=== PATIENT | female | born 1950 | race Caucasian/White ===

== ENCOUNTER 2017-10-26 17:45 | Inpatient (IN) | payer MEDICARE ==
[~2017-10-26] VITALS: Ht 160 cm; Wt 72.8 kg
[2017-10-26 17:53] VITALS: BP 125/58; PULSE 88; RESP 16; TEMP 98.3; O2SAT 100
--- NOTE | 2017-10-26 18:46 | PD ---
HPI Chief Complaint: Injury Time Seen by Provider: 18:17 Travel History International Travel<30 days: No Contact w/Intl Traveler<30days: No Traveled to known affect area: No History of Present Illness HPI 67-year-old female presents the emergency department status post trip and fall at home. She states she was going out into the driveway to help her wash the car, when she tripped over a bucket in the driveway and fell evening a outstretched hand injury to the right wrist. Patient has a small abrasion to the lateral aspect of the right wrist. She has pain and swelling and decreased movement secondary to pain in the right wrist and hand. She states the pain radiates up to her elbow but she is able to extend and flex the elbow normally. Patient denies hitting her head, or loss of consciousness. She denies neck pain or other injury. Pain in the wrist is 9 out of 10. Patient is allergic to codeine. PFSH Past Medical History ?: Not Social History Alcohol Use: Yes Tobacco Use: No Substance Use: No Allergies-Medications (Allergen,Severity, Reaction): Coded Allergies: codeine (Verified Allergy, Severe, Headache, 10/26/17) Reported Meds & Prescriptions Reported Meds & Active Scripts Active Cefdinir Liq (Cefdinir) 250 Mg/5 Ml Susp 250 Mg PO BID 10 Days Reported Hydrochlorothiazide 25 Mg Tab 25 Mg PO DAILY Review of Systems Except as stated in HPI: all other systems reviewed are Neg General / Constitutional: No: Fever Eyes: No: Visual changes HENT: No: Headaches Cardiovascular: No: Chest Pain or Discomfort Respiratory: No: Shortness of Breath Gastrointestinal: No: Abdominal Pain Genitourinary: No: Dysuria Musculoskeletal: Positive: Arthralgias, Limited ROM, Pain (see history of present illness) Skin: No Rash Neurologic: No: Weakness Psychiatric: No: Depression Endocrine: No: Polydipsia Hematologic/Lymphatic: No: Easy Bruising Physical Exam Narrative GENERAL: Patient appears in mild distress. SKIN: Warm and dry. Normal color. Normal turgor. Patient has abrasions to the right lateral wrist. HEAD: Atraumatic. Normocephalic. EYES: Pupils equal and round. No scleral icterus. No injection or drainage. ENT: No nasal bleeding or discharge. Mucous membranes pink and moist. No dental injury. Pharynx is clear. Airway is patent. NECK: Trachea midline. No bony tenderness or step-off. Range of motion is full and supple. CARDIOVASCULAR: Regular rate and rhythm. RESPIRATORY: No accessory muscle use. Clear to auscultation. Breath sounds equal bilaterally. MUSCULOSKELETAL: Extremities without clubbing, cyanosis, or edema. No obvious deformities. Patient has decreased range of motion in the right wrist and hand secondary to pain in the rest. Neurovascular exam in the right distal hand is normal. The right Elbow appears normal without signs of trauma. Right shoulder appears unremarkable. NEUROLOGICAL: Awake and alert. No obvious cranial nerve deficits. Motor grossly within normal limits. Five out of 5 muscle strength in the arms and legs. Normal speech. PSYCHIATRIC: Appropriate mood and affect; insight and judgment normal. Data Data Last Documented VS Vital Signs Date Time Temp Pulse Resp B/P (MAP) Pulse Ox O2 Delivery O2 Flow Rate FiO2 10/26/17 17:53 98.3 88 16 125/58 (80) 100 Orders Orders Wrist, Complete (Aeb1oon) (10/26/17 18:19) Wound Care (10/26/17 18:19) Complete Blood Count With Diff (10/26/17 18:58) Comprehensive Metabolic Panel (10/26/17 18:58) Prothrombin Time / Inr (Pt) (10/26/17 18:58) Act Partial Throm Time (Ptt) (10/26/17 18:58) Iv Access Insert/Monitor (10/26/17 18:58) Ecg Monitoring (10/26/17 18:58) Oximetry (10/26/17 18:58) NPO (10/26/17 18:58) Morphine Inj (Morphine Inj) (10/26/17 19:00) Ondansetron Inj (Zofran Inj) (10/26/17 19:00) Sodium Chlor 0.9% 1000 Ml Inj (Ns 1000 M (10/26/17 18:58) Sodium Chloride 0.9% Flush (Ns Flush) (10/26/17 19:00) Electrocardiogram (10/26/17 18:58) Chest, Single Ap (10/26/17 18:58) Splint Or Brace Apply/Monitor (10/26/17 19:29) Splint Or Brace Apply/Monitor (10/26/17 19:29) Admit Order (Ed Use Only) (10/26/17 19:45) Consult Orthopedic (10/26/17 ) Labs Laboratory Tests Test 10/26/17 19:18 White Blood Count 12.8 TH/MM3 Red Blood Count 4.87 MIL/MM3 Hemoglobin 13.7 GM/DL Hematocrit 43.4 % Mean Corpuscular Volume 89.0 FL Mean Corpuscular Hemoglobin 28.2 PG Mean Corpuscular Hemoglobin Concent 31.7 % Red Cell Distribution Width 12.5 % Platelet Count 261 TH/MM3 Mean Platelet Volume 8.6 FL Neutrophils (%) (Auto) 79.2 % Lymphocytes (%) (Auto) 16.5 % Monocytes (%) (Auto) 3.3 % Eosinophils (%) (Auto) 0.5 % Basophils (%) (Auto) 0.5 % Neutrophils # (Auto) 10.1 TH/MM3 Lymphocytes # (Auto) 2.1 TH/MM3 Monocytes # (Auto) 0.4 TH/MM3 Eosinophils # (Auto) 0.1 TH/MM3 Basophils # (Auto) 0.1 TH/MM3 CBC Comment AUTO DIFF Prothrombin Time 11.1 SEC Prothromb Time International Ratio 1.1 RATIO Activated Partial Thromboplast Time 26.8 SEC Blood Urea Nitrogen 16 MG/DL Creatinine 0.73 MG/DL Random Glucose 109 MG/DL Total Protein 7.7 GM/DL Albumin 3.8 GM/DL Calcium Level 8.9 MG/DL Alkaline Phosphatase 75 U/L Aspartate Amino Transf (AST/SGOT) 20 U/L Alanine Aminotransferase (ALT/SGPT) 29 U/L Total Bilirubin 0.3 MG/DL Sodium Level 134 MEQ/L Potassium Level 3.9 MEQ/L Chloride Level 99 MEQ/L Carbon Dioxide Level 25.9 MEQ/L Anion Gap 9 MEQ/L Estimat Glomerular Filtration Rate 79 ML/MIN [facility] Medical Decision Making Medical Screen Exam Complete: Yes Emergency Medical Condition: Yes Differential Diagnosis Trip and fall. Right wrist sprain. Right wrist abrasion. Fracture. Narrative Course Ice is applied to the injured area. X-ray of the right wrist shows a comminuted displaced intra-articular distal radial fracture. IV access is obtained and labs are obtained including CBC, CMP, PT PTT and INR. Chest x-ray is obtained as well as EKG for preop purposes. Patient is given 4 mg morphine IV as well as 4 mg Zofran IV. Patient is given 1000 mg normal saline bolus per Call was placed to Dr. Pitts, the orthopedic on-call and the patient is discussed with his physician casting assistant. Dr. Pitts requests the patient be admitted to medicine and transferred to [facility] for surgical open reduction and fixation in the morning. Call was placed to the residence and the patient is discussed with Dr. Calvo. Patient is accepted for admission and will be transferred to [facility] for admission. Diagnosis Primary Impression: Closed fracture of right distal radius Qualified Codes: S52.571A - Other intraarticular fracture of lower end of right radius, initial encounter for closed fracture Admitting Information Admitting Physician Requests: Observation Scripts Cefdinir Liq (Cefdinir Liq) 250 Mg/5 Ml Susp 250 MG PO BID for Infection for 10 Days, #100 ML 0 Refills Prov: Cynthia Donovan MD 10/26/17 Condition: Stable Tung Schroeder Oct 26, 2017 18:46
[2017-10-26] MEDS ORDERED: HYDR25TA5 PO (18:49)
[2017-10-26] MEDS ORDERED: SODIUM CHLOR 0.9% 1000 ML INJ 1,000 ML IV SCH (18:58)
[2017-10-26] MEDS ORDERED: ONDANSETRON HCL 4 MG/2 ML VIAL IVP ONE (19:00)
[2017-10-26] MEDS ORDERED: SODIUM CHLORIDE 0.9% FLUSH 10 ML FLUSH IV FLUSH PRN ×2 (19:00→19:45)
[2017-10-26] MEDS ORDERED: MORPHINE SULFATE 4 MG/ML INJ IV PUSH ONE (19:00)
[2017-10-26] MEDS ORDERED: CEFD250S PO (19:06)
--- NOTE | 2017-10-26 19:22 | RADRPT ---
EXAM DATE/TIME: 10/26/2017 18:46 [facility] COMPARISON: No previous studies available for comparison. INDICATIONS : Right wrist pain, swelling, and bleeding since falling this afternoon. MEDICAL HISTORY : None. SURGICAL HISTORY : None. ENCOUNTER: Initial ACUITY: 1 day PAIN SCORE: 8/10 LOCATION: Right lateral wrist. FINDINGS: There is a comminuted fracture of the distal radius with both a horizontal and longitudinal component with the longitudinal component extending into the radiocarpal row. The ulnar styloid fragment is m oderately displaced laterally. There is widening of the scapholunate distance. The distal ulna appe ars intact, but there is a 3 mm well-corticated ossific density in the space between the pisiform and ulnar styloid suggesting old avulsion fragment. The osseous structures of the hand appear grossly i ntact. CONCLUSION: 1. Comminuted and displaced distal radial fracture extending into the radiocarpal row. 2. Probable scapholunate ligament disruption. Pradip Espinal MD on October 26, 2017 at 19:18 Board Certified Radiologist. This report was verified electronically.
[2017-10-26 19:24] LABS: AUTOMATED NEUTROPHIL # 10.1 TH/MM3 (1.8-7.7); BASOPHIL # 0.1 TH/MM3 (0-0.2); BASOPHIL % 0.5 % (0.0-2.0); EOSINOPHIL # 0.1 TH/MM3 (0-0.4); EOSINOPHIL % 0.5 % (0.0-4.0); HEMATOCRIT 43.4 % (35.0-46.0); HEMOGLOBIN 13.7 GM/DL (11.6-15.3); LYMPH % 16.5 % (9.0-44.0); LYMPHOCYTE # 2.1 TH/MM3 (1.0-4.8); MEAN CORPUSCULAR HEMOGLOBIN 28.2 PG (27.0-34.0); MEAN CORPUSCULAR HGB CONC 31.7 % (32.0-36.0); MEAN PLATELET VOLUME 8.6 FL (7.0-11.0); MONO % 3.3 % (0.0-8.0); MONOCYTE # 0.4 TH/MM3 (0-0.9); NEUT % 79.2 % (16.0-70.0); PLATELET COUNT 261 TH/MM3 (150-450); RED BLOOD COUNT 4.87 MIL/MM3 (4.00-5.30); RED CELL DISTRIBUTION WIDTH 12.5 % (11.6-17.2); WHITE BLOOD COUNT 12.8 TH/MM3 (4.0-11.0)
[2017-10-26 19:35] LABS: CHLORIDE 99 MEQ/L (98-107); SODIUM (NA) 134 MEQ/L (136-145)
[2017-10-26 19:39] LABS: ALBUMIN 3.8 GM/DL (3.4-5.0); BICARBONATE 25.9 MEQ/L (21.0-32.0); BLOOD UREA NITROGEN 16 MG/DL (7-18); CALCIUM 8.9 MG/DL (8.5-10.1); GLUCOSE,RANDOM 109 MG/DL (74-106); INTERNATIONAL NORMALIZED RATIO 1.1 RATIO; PROTHROMBIN TIME - PATIENT 11.1 SEC (9.8-11.6)
[2017-10-26 19:42] LABS: ALT (GPT) 29 U/L (10-53); AST (GOT) 20 U/L (15-37); CREATININE 0.73 MG/DL (0.50-1.00); GLOMERULAR FILTRATION RATE 79 ML/MIN (>89)
[2017-10-26 19:44] LABS: TOTAL BILIRUBIN ADULT 0.3 MG/DL (0.2-1.0); TOTAL PROTEIN 7.7 GM/DL (6.4-8.2)
[2017-10-26 19:45] LABS: ALKALINE PHOSPHATASE 75 U/L (45-117)
[2017-10-26] MEDS ORDERED: SENNOSIDES 8.6 MG TAB PO PRN (19:45)
[2017-10-26] MEDS ORDERED: ACETAMINOPHEN 325 MG TAB PO PRN (19:45)
[2017-10-26] MEDS ORDERED: ONDANSETRON HCL 4 MG/2 ML VIAL IVP PRN (19:45)
[2017-10-26] MEDS ORDERED: MAGNESIUM HYDROXIDE SUSP 30 ML CUP PO PRN (19:45)
[2017-10-26] MEDS ORDERED: NALOXONE HCL 0.4 MG/ML AMP IV PUSH PRN (19:45)
--- NOTE | 2017-10-26 20:34 | RADRPT ---
EXAM DATE/TIME: 10/26/2017 20:18 [facility] COMPARISON: No previous studies available for comparison. INDICATIONS : Evaluate for pneumonia, pneumothorax, or communicable disease. Pre op for right wrist surgery. MEDICAL HISTORY : None. SURGICAL HISTORY : None. ENCOUNTER: Initial ACUITY: 1 day PAIN SCORE: 0/10 LOCATION: Bilateral chest FINDINGS: A single view of the chest demonstrates the lungs to be symmetrically aerated without evidence of mas s, infiltrate or effusion. No evidence of pneumothorax. The cardiomediastinal contours are unremark able. Osseous structures are intact. CONCLUSION: The lungs are clear. Pradip Espinal MD on October 26, 2017 at 20:32 Board Certified Radiologist. This report was verified electronically.
[2017-10-26 20:40] VITALS: BP 153/67; PULSE 83; RESP 18; O2SAT 95
--- NOTE | 2017-10-26 20:43 | EKG ---
Date Performed: 10/26/2017 Time Performed: 19:10:14 PTAGE: 67 years EKG: Sinus rhythm POSSIBLE LEFT ATRIAL ENLARGEMENT MARKED LEFT AXIS DEVIATION LEFT VENTRICULAR HYPERTROPHY AND ST-T CH EMMANUELLE ABNORMAL ECG NO PREVIOUS TRACING DOCTOR: Deniz Zamora Interpretating Date/Time 10/26/2017 20:42:40
[2017-10-26] MEDS: SODIUM CHLORIDE 0.9% FLUSH 10 ML FLUSH IV FLUSH SCH (21:00)
[2017-10-26 23:25] VITALS: BP 171/73; PULSE 87; RESP 20; TEMP 99.4; O2SAT 95
--- NOTE | 2017-10-26 23:47 | HHI.HP ---
[facility] Thais Sloan MD Admission Diagnosis right distal radial fracture Diagnoses: (1) Closed fracture of right distal radius Chief Complaint: right hand swelling, right wrist pain following a fall Travel History International Travel<30 Days: No Contact w/Intl Traveler <30 Da: No Traveled to Known Affected Are: No History of Present Illness Ms. Jernigan is a pleasant 67 y/o female with a history of hypertension who presented to the [facility] ED on 10/26/17 following a fall at home resulting in right distal radius fracture. She was transferred to [facility] for surgical repair by Dr. Ochoa. The hospitalists are admitting for pain management and blood pressure optimization prior to surgical repair of right wrist. The patient is seen in the orthopedic unit. She is sitting up in a chair with her right arm splinted and in a sling. She reports pain of 12 out of 10 prior to being medicated with morphine IV. She reports her pain currently is 3 out of 10 when not moving and 6-7 out of 10 when she moves her fingers. Pain is relieved with immobilization and IV analgesia and exacerbated by movement. The patient states that she was helping her wash her car in the driveway and tripped over a bucket and fell. She tried to brace her fall with her right wrist. She states swelling occurred immediately following the fall in the right hand along with excruciating pain in her right wrist. She did not lose consciousness nor did she hit her head. The patient has an adverse reaction to codeine - a severe headache. She denies any recent fever, chills, chest pain, shortness of breath, coughs, cold, nausea , vomiting, or diarrhea. Last bowel movement was 10/26/2017 in the morning. She denies any prior history of anesthesia adverse reactions. Review of Systems Except as stated in HPI: all other systems reviewed are Neg Past Family Social History Past Medical History Hypertension . Past Surgical History Left breast cystectomy 2 . Reported Medications Reported Hydrochlorothiazide 25 Mg Tab 25 Mg PO DAILY . Allergies: Coded Allergies: codeine (Verified Allergy, Severe, Headache, 10/26/17) Active Ordered Medications . Current Medications Morphine Sulfate (Morphine Inj) 4 mg ONCE ONCE IV PUSH Last administered on 19:28; Start 10/26/17 at 19:00; Stop 10/26/17 at 19:01; Status DC Ondansetron HCl (Zofran Inj) 4 mg ONCE ONCE IVP Last administered on 19:29; Start 10/26/17 at 19:00; Stop 10/26/17 at 19:01; Status DC Sodium Chloride 1,000 ml @ 1,000 mls/hr Q1H IV Last administered on 19:28; Start 10/26/17 at 18:58; Stop 10/26/17 at 19:57; Status DC Sodium Chloride (NS Flush) 2 ml UNSCH PRN IV FLUSH FLUSH AFTER USING IV ACCESS ; Start 10/26/17 at 19:00; Stop 10/26/17 at 19:56; Status DC Sodium Chloride (NS Flush) 2 ml UNSCH PRN IV FLUSH FLUSH AFTER USING IV ACCESS ; Start 10/26/17 at 19:45 Sodium Chloride (NS Flush) 2 ml BID IV FLUSH ; Start 10/26/17 at 21:00 Acetaminophen (Tylenol) 650 mg Q4H PRN PO TEMP > 100.4; Start 10/26/17 at 19: 45 Ondansetron HCl (Zofran Inj) 4 mg Q6H PRN IVP NAUSEA OR VOMITING; Start at 19:45 Naloxone HCl (Narcan Inj) 0.4 mg UNSCH PRN IV PUSH SEE LABEL COMMENTS; Start 10/26/17 at 19:45 Magnesium Hydroxide (Milk Of Magnesia Liq) 30 ml Q12H PRN PO Mild constipation ; Start 10/26/17 at 19:45 Sennosides (Senokot) 17.2 mg Q12H PRN PO Moderate constipation; Start at 19:45 Morphine Sulfate (Morphine Inj) 2 mg Q3H PRN IV PUSH pain 5 - 10 Last administered on 10/26/17 23:50; Start 10/26/17 at 20:00 Hydrochlorothiazide (Hydrodiuril) 25 mg DAILY PO ; Start 10/27/17 at 09:00 Lactated Ringer's 1,000 ml @ 30 mls/hr Q24H PRN IV SEE LABEL COMMENTS; Start 10/27/17 at 23:45; Stop 10/30/17 at 23:44 Povidone Iodine (Betadine 5% Antisepsis Kit) 1 applic STOCKKEEPER PRN EACH NARE SEE LABEL COMMENTS; Start 10/27/17 at 23:45; Stop 10/30/17 at 23:44 Chlorhexidine Gluconate (Chlorhexidine 2% Cloth) 3 pack STOCKKEEPER PRN TOPICAL SEE LABEL COMMENTS; Start 10/27/17 at 23:45; Stop 10/30/17 at 23:44 Family History Denies family history of adverse reactions to anesthesia Denies family history of heart disease; states her father developed diabetes mellitus in his 90s . Social History Tobacco: Denies ever smoking Alcohol: Denies any alcohol intake other than a sip here or there since she was about 38 years old Illicit Drugs: Denies . Physical Exam Vital Signs Vital Signs Date Time Temp Pulse Resp B/P (MAP) Pulse Ox O2 Delivery O2 Flow Rate FiO2 10/26/17 22:51 10/26/17 20:40 83 18 153/67 (95) 95 Room Air 10/26/17 20:40 95 Room Air 10/26/17 17:53 98.3 88 16 125/58 (80) 100 Physical Exam GENERAL: This is a very pleasant well-nourished, well-developed patient, in no apparent distress. SKIN: No rashes, ecchymoses or lesions - right forearm is covered by splint. Cool and dry. HEAD: Atraumatic. Normocephalic. EYES: No scleral icterus. No injection or drainage. ENT: Nose without bleeding, purulent drainage. NECK: Trachea midline. No JVD or lymphadenopathy. CARDIOVASCULAR: Regular rate and rhythm without murmurs, gallops, or rubs. RESPIRATORY: Clear to auscultation. Breath sounds equal bilaterally. No wheezes , rales, or rhonchi. GASTROINTESTINAL: Abdomen soft, non-tender, nondistended. No guarding. MUSCULOSKELETAL: Extremities without clubbing, cyanosis, or edema. No calf tenderness. Right arm in splint and shoulder sling - able to wiggle fingers, sensation intact, capillary refill intact, and her hand is warm. NEUROLOGICAL: Awake and alert. Motor and sensory grossly within normal limits. Normal speech. . Laboratory Laboratory Tests Test 10/26/17 19:18 White Blood Count 12.8 Red Blood Count 4.87 Hemoglobin 13.7 Hematocrit 43.4 Mean Corpuscular Volume 89.0 Mean Corpuscular Hemoglobin 28.2 Mean Corpuscular Hemoglobin Concent 31.7 Red Cell Distribution Width 12.5 Platelet Count 261 Mean Platelet Volume 8.6 Neutrophils (%) (Auto) 79.2 Lymphocytes (%) (Auto) 16.5 Monocytes (%) (Auto) 3.3 Eosinophils (%) (Auto) 0.5 Basophils (%) (Auto) 0.5 Neutrophils # (Auto) 10.1 Lymphocytes # (Auto) 2.1 Monocytes # (Auto) 0.4 Eosinophils # (Auto) 0.1 Basophils # (Auto) 0.1 CBC Comment AUTO DIFF Differential Comment AUTO DIFF CONFIRMED Prothrombin Time 11.1 Prothromb Time International Ratio 1.1 Activated Partial Thromboplast Time 26.8 Blood Urea Nitrogen 16 Creatinine 0.73 Random Glucose 109 Total Protein 7.7 Albumin 3.8 Calcium Level 8.9 Alkaline Phosphatase 75 Aspartate Amino Transf (AST/SGOT) 20 Alanine Aminotransferase (ALT/SGPT) 29 Total Bilirubin 0.3 Sodium Level 134 Potassium Level 3.9 Chloride Level 99 Carbon Dioxide Level 25.9 Anion Gap 9 Estimat Glomerular Filtration Rate 79 Result Diagram: 10/26/17191710/26/171917 Caprini VTE Risk Assessment Caprini VTE Risk Assessment: Mod/High Risk (score >= 2) Caprini Risk Assessment Model Point Value = 1 Point Value = 2 Point Value = 3 Point Value = 5 Age 41-60 Minor surgery BMI > 25 kg/m2 Swollen legs Varicose veins or History of unexplained or recurrent spontaneous Oral contraceptives or hormone replacement Sepsis (< 1 month) Serious lung disease, including pneumonia (< 1 month) Abnormal pulmonary function Acute myocardial infarction Congestive heart failure (< 1 month) History of inflammatory bowel disease Medical patient at bed rest Age 61-74 Arthroscopic surgery Major open surgery (> 45 min) Laparoscopic surgery (> 45 min) Malignancy Confined to bed (> 72 hours) Immobilizing plaster cast Central venous access Age >= 75 History of VTE Family history of VTE Factor V Leiden Prothrombin [id number] Lupus anticoagulant Anticardiolipin antibodies Elevated serum homocysteine Heparin-induced thrombocytopenia Other congenital or acquired thrombophilia Stroke (< 1 month) Elective arthroplasty Hip, pelvis, or leg fracture Acute spinal cord injury (< 1 month) Prophylaxis Regimen Total Risk Factor Score Risk Level Prophylaxis Regimen 0-1 Low Early ambulation 2 Moderate Order ONE of the following: *Sequential Compression Device (SCD) *Heparin 5000 units SQ BID 3-4 Higher Order ONE of the following medications: *Heparin 5000 units SQ TID *Enoxaparin/Lovenox 40 mg SQ daily (WT < 150 kg, CrCl > 30 mL/min) *Enoxaparin/Lovenox 30 mg SQ daily (WT < 150 kg, CrCl > 10-29 mL/min) *Enoxaparin/Lovenox 30 mg SQ BID (WT < 150 kg, CrCl > 30 mL/min) AND/OR *Sequential Compression Device (SCD) 5 or more Highest Order ONE of the following medications: *Heparin 5000 units SQ TID (Preferred with Epidurals) *Enoxaparin/Lovenox 40 mg SQ daily (WT < 150 kg, CrCl > 30 mL/min) *Enoxaparin/Lovenox 30 mg SQ daily (WT < 150 kg, CrCl > 10-29 mL/min) *Enoxaparin/Lovenox 30 mg SQ BID (WT < 150 kg, CrCl > 30 mL/min) AND *Sequential Compression Device (SCD) Assessment and Plan Problem List: (1) Closed fracture of right distal radius ICD Code: S52.501A - Unspecified fracture of the lower end of right radius, initial encounter for closed fracture Status: Acute (2) Hypertension ICD Code: I10 - Essential (primary) hypertension Status: Chronic (3) Leukocytosis ICD Code: D72.829 - Elevated white blood cell count, unspecified (4) Hyponatremia ICD Code: E87.1 - Hypo-osmolality and hyponatremia Assessment and Plan Ms. Jerniagn is a pleasant 67 y/o female with a history of hypertension who presented to the [facility] ED on 10/26/17 following a fall at home resulting in right distal radius fracture. She was transferred to [facility] for surgical repair by Dr. Ochoa. The hospitalists are admitting for pain management and blood pressure optimization prior to surgical repair of right wrist. Right distal radius fracture - Dr. Ochoa, orthopedic surgeon, consulted by ER PA - Morphine 2 mg IV push every 3 hours as needed for pain - will titrate upward if necessary - Nothing by mouth after midnight Hypertension - Resume home hydrochlorothiazide - Monitor trends in blood pressure readings and adjust treatment as indicated - pain will need to be well-controlled as it will contribute to BP elevations - Morphine IV as per above - patient will alert us if dosing is not effective in managing pain. Mild hyponatremia, likely secondary to HCTZ - Sodium 134 on admission - Normal saline bolus 1 L given an ED - Recheck BMP in a.m. and follow trends and electrolytes including sodium - Should f/u with PCP as an outpatient Leukocytosis - likely stress reaction - WBC 12.8 with neutrophilia - Recheck CBC in a.m. and follow results - should spontaneously resolve DVT prophylaxis - SCDs/TEDs . Discussed Condition With Patient, RN, and Dr. Griggs . Physician Certification 2 Midnight Certification Type: Admission for Inpatient Services Order for Inpatient Services The services are ordered in accordance with Medicare regulations or non- Medicare payer requirements, as applicable. In the case of services not specified as inpatient-only, they are appropriately provided as inpatient services in accordance with the 2-midnight benchmark. Estimated LOS (days): 2 days is the estimated time the patient will need to remain in the hospital, assuming treatment plan goals are met and no additional complications. Post-Hospital Plan: Home Problem Qualifiers (1) Closed fracture of right distal radius: Qualified Codes: S52.571A - Other intraarticular fracture of lower end of right radius, initial encounter for closed fracture Leatha Calvo Oct 26, 2017 23:47
[2017-10-26] MEDS: MORPHINE SULFATE 2 MG/ML INJ IV PUSH PRN (23:50)
[2017-10-27] MEDS ORDERED: diphenhydrAMINE HCL 25 MG CAP PO PRN (00:15)
[2017-10-27 04:00] VITALS: BP 140/69; PULSE 76; RESP 18; TEMP 99; O2SAT 96
[2017-10-27] MEDS: MORPHINE SULFATE 2 MG/ML INJ IV PUSH PRN ×2 (05:49→11:21)
[2017-10-27] MEDS ORDERED: HYDR-3580 PO (06:11)
[2017-10-27] MEDS ORDERED: ACETAMINOPHEN 1000 MG/100 ML 100 ML IV ONE (06:46)
[2017-10-27] MEDS ORDERED: SODIUM CHLOR 0.9% 250 ML INJ 250 ML ONE (07:50)
[2017-10-27] MEDS ORDERED: VANCOMYCIN HCL 1000 MG VIAL ONE (07:50)
[2017-10-27] MEDS ORDERED: GENTAMICIN SULFATE 80 MG/2 ML VIAL ONE (07:50)
[2017-10-27] MEDS ORDERED: ceFAZolin 2 GM PREMIX 50 ML ONE (08:07)
[2017-10-27] MEDS ORDERED: BUPIVACAINE/EPINEPHRINE 0.25% PF 10 ML VIAL ONE (08:37)
[2017-10-27] MEDS: SODIUM CHLORIDE 0.9% FLUSH 10 ML FLUSH IV FLUSH SCH (09:00)
[2017-10-27] MEDS ORDERED: HYDROCHLOROTHIAZIDE 25 MG TAB PO SCH (09:00)
--- NOTE | 2017-10-27 09:06 | HHI.PR ---
Subjective Remarks Feel better had surgery by Dr Ochoa. No pain at this time. No fever or chills. No n/v/d/c. Will eat will have po pain meds and if tolerated food and pain is controlled patient can be discharged. Objective Vitals Vital Signs Date Time Temp Pulse Resp B/P (MAP) Pulse Ox O2 Delivery O2 Flow Rate FiO2 10/27/17 04:00 99.0 76 18 140/69 (92) 96 10/26/17 23:25 99.4 87 20 171/73 (105) 95 10/26/17 22:51 10/26/17 20:40 83 18 153/67 (95) 95 Room Air 10/26/17 20:40 95 Room Air 10/26/17 17:53 98.3 88 16 125/58 (80) 100 I/O 10/26/17 10/26/17 10/26/17 10/27/17 10/27/17 10/27/17 07:00 15:00 23:00 07:00 15:00 23:00 Intake Total 1000 ml Balance 1000 ml Intake IV Total 1000 ml Result Diagram: 10/26/17191710/26/171917 Imaging Last Impressions Chest X-Ray 10/26/171857 Signed Impressions: Service Date/Time: Thursday, October 26, 2017 20:18 - CONCLUSION: The lungs are clear. Pradip Espinal MD Wrist X-Ray 10/26/171818 Signed Impressions: Service Date/Time: Thursday, October 26, 2017 18:46 - CONCLUSION: 1. Comminuted and displaced distal radial fracture extending into the radiocarpal row. 2. Probable scapholunate ligament disruption. Pradip Espinal MD Objective Remarks GENERAL: This is a very pleasant well-nourished, well-developed patient, in no apparent distress. CARDIOVASCULAR: Regular rate and rhythm without murmurs, gallops, or rubs. RESPIRATORY: Clear to auscultation. Breath sounds equal bilaterally. No wheezes , rales, or rhonchi. GASTROINTESTINAL: Abdomen soft, non-tender, nondistended. No guarding. MUSCULOSKELETAL: Extremities without clubbing, cyanosis, or edema. No calf tenderness. Right arm after surgery in sling. Able to wiggle fingers, sensation intact, capillary refill intact, and her hand is warm. Neurovascular intact. NEUROLOGICAL: Awake and alert. Motor and sensory grossly within normal limits. Normal speech. A/P Problem List: (1) Closed fracture of right distal radius ICD Code: S52.501A - Unspecified fracture of the lower end of right radius, initial encounter for closed fracture Status: Acute (2) Hypertension ICD Code: I10 - Essential (primary) hypertension Status: Chronic (3) Leukocytosis ICD Code: D72.829 - Elevated white blood cell count, unspecified (4) Hyponatremia ICD Code: E87.1 - Hypo-osmolality and hyponatremia Assessment and Plan Ms. Jernigan is a pleasant 67 y/o female with a history of hypertension who presented to the [facility] on 10/26/17 following a fall at home resulting in right distal radius fracture. She was transferred to [facility] for surgical repair by Dr. Ochoa. The hospitalist are admitting for pain management and blood pressure optimization prior to surgical repair of right wrist. Displaced intra-articular right distal radius fracture s/p Open reduction internal fixation right distal radius fracture by Dr Ochoa ortho on 10/27/17 - Dr. Ochoa - Morphine 2 mg IV push every 3 hours as needed for pain. Switch to PO pain management. Hypertension - Resume home hydrochlorothiazide - Monitor trends in blood pressure readings and adjust treatment as indicated - pain will need to be well-controlled as it will contribute to BP elevations - Morphine IV as per above - patient will alert us if dosing is not effective in managing pain. Mild hyponatremia, likely secondary to HCTZ. Resolved. - Sodium 134 on admission - Normal saline bolus 1 L given an ED - Gbdhza0q electrolytes - Should f/u with PCP as an outpatient Leukocytosis - likely stress reaction - WBC 12.8 with neutrophilia - Recheck CBC in a.m. and follow results - should spontaneously resolve DVT prophylaxis - SCDs/TEDs . Discussed Condition With Patient, nurse Will eat will have po pain meds and if tolerated food and pain is controlled patient can be discharged. Problem Qualifiers (1) Closed fracture of right distal radius: Qualified Codes: S52.571A - Other intraarticular fracture of lower end of right radius, initial encounter for closed fracture Yulia Willoughby MD Oct 27, 2017 09:06
[2017-10-27] MEDS ORDERED: ACETAMINOPHEN/HYDROcodone 325 MG/7.5 MG TAB PO PRN (09:15)
--- NOTE | 2017-10-27 09:18 | PD.OP ---
cc: Jose Pitts MD Operative Report Date of Surgery: Oct 27, 2017 Preoperative Diagnosis: Postoperative Diagnosis: Displaced intra-articular right distal radius fracture Procedure: Open reduction internal fixation right distal radius fracture Anesthesia: Gen. Surgeon: Jose Pitts Rd Mechanical Engineer(s): Luigi Goodson PA-C The surgical procedure was assisted by my physician refinery operator assistant. My P.A. presence was necessary throughout this case for the manipulation and positioning of the surgical extremity. My P.A. was assisting me throughout the duration of this procedure. The skill set of a physician refinery operator assistant was medically necessary to complete this procedure. During the surgical case the surgical instrument mechanic was working at the back table and the physician refinery operator assistant was directly assisting me. Operation and Findings: Patient was seen and evaluated preoperatively and found to have a displaced intra-articular right distal radius fracture. Informed consent was obtained after detailed discussion of risk and benefits including bleeding, infection, injury to arteries, nerves, and blood vessels, weakness and numbness of hand, and tendon rupture. Informed consent was obtained. Patient received IV antibiotics prior to incision. Timeout procedure was performed. Operative extremity was prepped with alcohol followed by Hibiclens and draped usual sterile fashion. A standard volar approach to the distal radius was utilized. A 3 inch incision was made over the FCR tendon. Tendon sheath was opened. Pronator quadratus was elevated up. The fracture site was now visualized. The fracture did have intra-articular extension. Traction was applied. The articular surface was reduced. Fracture fragments were manipulated to achieve excellent reduction. K wires were used to hold provisional fixation. Fluoroscopy confirmed appropriate alignment of fracture. A ITS distal radius plate was selected. Plate was provisionally fixed to bone with K wires. 2.7 and 2.4 cortical screws were used to compress plate to bone. Fluoroscopy confirmed appropriate alignment of fracture with well-placed hardware. Multiple 2.4 locking screws were now placed distally. Screws were predrilled and measured for appropriate length. 2 additional screws were placed into the shaft. K wires were removed. Final fluoroscopy revealed excellent of fracture with well-placed hardware. The wound was thoroughly irrigated with sterile saline. Subcutaneous tissue was closed with 3-0 Vicryl and skin was closed with 3-0 nylon. Sterile dressings were applied with Xeroform, 4 x 4, soft roll, and a well padded volar splint. Patient was awakened and transferred to recovery room in stable condition Jose Pitts MD Oct 27, 2017 09:17
[2017-10-27] MEDS ORDERED: DO NOT ADM ANY ANTICOAGULANT DRUGS PRN (09:35)
[2017-10-27] MEDS ORDERED: *morphine SULFATE 8 MG/ML PERIprocedure ONLY ONE (09:44)
--- NOTE | 2017-10-27 09:51 | MB ---
cc: MARY WILLOUGHBY MD, TODD DATE OF CONSULTATION 10/27/2017 REASON FOR CONSULTATION Right distal radius fracture. CONSULTING PHYSICIAN Dr. Willoughby. HISTORY OF PRESENT ILLNESS Zaira is a 67-year-old female who presented to the emergency room complaining of right wrist pain. She had a fall. She tripped and lost her balance. She describes a mechanical fall. She landed on her outstretched right arm. She had immediate right wrist pain. She did not hit her head. She denies dizziness, syncope or loss of consciousness. She presented to the emergency room where x-rays reveal a displaced right distal radius fracture. She was placed into a splint. She is currently awake and alert. Pain is worse with movement and is improved with rest. She is currently awake and alert on the orthopedic floor. PAST MEDICAL HISTORY ILLNESSES Hypertension. SURGERIES Left breast lumpectomy. MEDICATIONS Hydrochlorothiazide. ALLERGIES CODEINE. FAMILY HISTORY Noncontributory. Denies any familial problems with anesthesia. SOCIAL HISTORY The patient denies alcohol, tobacco or drug use. REVIEW OF SYSTEMS The patient denies headache, visual changes, neck pain, chest pain, shortness of breath, abdominal pain, nausea, vomiting or recent weight loss, numbness or tingling of extremities, bowel or bladder incontinence. She complains of right wrist pain. Pain is worse with movement. PHYSICAL EXAMINATION GENERAL: The patient is a pleasant 67-year-old female. She is awake and alert. She is alert and oriented x3. She appears well-developed, well-nourished. VITAL SIGNS: Temperature 99.0, pulse 76, respirations 18, blood pressure 140/69. O2 sat is 96% on room air. HEAD: The patient is normocephalic. Pupils are equal. NECK: Soft, nontender. Trachea is midline. ABDOMEN: Soft, nontender, nondistended. EXTREMITIES: Examination of right arm reveals no pain with shoulder or elbow motion. She is diffusely tender around the wrist. There is mild deformity present. She has mild swelling in her hand and fingers. She does have intact sensation in all fingers. She has minimal pain with gentle finger motion. Examination of left arm reveals no pain with shoulder, elbow or wrist motion. She has intact sensation in all fingers. She has good capillary refill in all fingers. Skin is intact. Radial pulse is palpable. Examination of bilateral lower extremities reveals no pain with hip, knee or ankle motion. Skin is intact. Dorsalis pedis pulses are palpable. Sensation is intact. X-RAYS X-rays of right wrist were reviewed. X-rays reveal a displaced intraarticular right distal radius fracture. IMPRESSION 1. Displaced right distal radius fracture. 2. Hypertension. PLAN The treatment options were discussed with the patient. At this point I would recommend open reduction, internal fixation of the right distal radius. The risks of surgery include bleeding, infection, injuries to arteries, nerves and blood vessels, nonunion, malunion, painful hardware, tendon rupture, arthritis, wrist stiffness, as well as medical complications associated anesthesia. All questions were answered. I will plan on surgery today. A mid-level provider in my office, nurse practitioner or PA, may see this patient on a follow-up basis and continue to implement the objective of this plan including: Starting or adjusting medications, injections of muscle, tendon, bursa or joints, cast application, orthotic or brace application, physical therapy, further radiographic studies including x-ray, MRI, CT, ultrasounds or bone scan, vascular studies, neurologic studies, or other specialist consultations, and proceeding with surgical management as appropriate. MD YADIRA Escamilla/PORTILLO /8:22 AM /9:41 AM
--- NOTE | 2017-10-27 10:16 | RADRPT ---
EXAM DATE/TIME: 10/27/2017 09:02 [facility] COMPARISON: No previous studies available for comparison. INDICATIONS : Open reduction internal fixation right wrist. MEDICAL HISTORY : None. SURGICAL HISTORY : None. ENCOUNTER: Initial ACUITY: 1 day PAIN SCORE: Non-responsive. LOCATION: Right Wrist FINDINGS: Plate with screws is seen bridging fracture distal radius. Anatomic alignment. CONCLUSION: Anatomic Alignment. Steven Padilla MD FACR on October 27, 2017 at 10:14 Board Certified Radiologist. This report was verified electronically.
[2017-10-27 10:25] VITALS: BP 153/72; PULSE 90; RESP 17; TEMP 97.8; O2SAT 96
[2017-10-27 12:00] VITALS: BP 137/69; PULSE 92; RESP 17; TEMP 97.3; O2SAT 93
[2017-10-27] MEDS ORDERED: DEXAMETHASONE SOD PHOS 4 MG/ML VIAL IV ONE (12:00)
[2017-10-27] MEDS ORDERED: PROPOFOL 200 MG/20 ML AMP IV ONE (12:00)
[2017-10-27] MEDS ORDERED: LIDOCAINE HCL 1% PF 5 ML SYRINGE OTHER ONE (12:00)
[2017-10-27] MEDS ORDERED: ONDANSETRON HCL 4 MG/2 ML VIAL IV ONE (12:00)
[2017-10-27] MEDS ORDERED: MORPHINE SULFATE 2 MG/ML INJ IV PUSH PRN (12:00)
[2017-10-27] MEDS ORDERED: ePHEDrine/NS 25 MG/5 ML SYRINGE IV ONE (12:00)
[2017-10-27] MEDS ORDERED: PHENYLEPH/NS 1000 MCG/10 ML SYR IV ONE (12:00)
[2017-10-27 13:17] LABS: AUTOMATED NEUTROPHIL # 11.1 TH/MM3 (1.8-7.7); BASOPHIL % 0.1 % (0.0-2.0); EOSINOPHIL % 0.1 % (0.0-4.0); HEMOGLOBIN 12.6 GM/DL (11.6-15.3); LYMPH % 9.2 % (9.0-44.0); LYMPHOCYTE # 1.1 TH/MM3 (1.0-4.8); MEAN CELL VOLUME 89.9 FL (80.0-100.0); MEAN CORPUSCULAR HEMOGLOBIN 29.7 PG (27.0-34.0); MEAN CORPUSCULAR HGB CONC 33.1 % (32.0-36.0); MEAN PLATELET VOLUME 8.8 FL (7.0-11.0); MONO % 1.1 % (0.0-8.0); MONOCYTE # 0.1 TH/MM3 (0-0.9); NEUT % 89.5 % (16.0-70.0); PLATELET COUNT 215 TH/MM3 (150-450); RED BLOOD COUNT 4.23 MIL/MM3 (4.00-5.30); RED CELL DISTRIBUTION WIDTH 13.1 % (11.6-17.2); WHITE BLOOD COUNT 12.4 TH/MM3 (4.0-11.0)
[2017-10-27 13:51] LABS: BICARBONATE 26.5 MEQ/L (21.0-32.0); CALCIUM 8.4 MG/DL (8.5-10.1); CREATININE 0.65 MG/DL (0.50-1.00)
[2017-10-27] MEDS ORDERED: LACTATED RINGER'S 1000 ML IV PRN (23:45)
[2017-10-27] MEDS ORDERED: POVIDONE IODINE 5% (ANTISEPSIS KIT) 4 APPLICATIONS EACH NARE PRN (23:45)
[2017-10-27] MEDS ORDERED: CHLORHEXIDINE GLUCONATE 2 % 1 PACK (2 CLOTHS) TOPICAL PRN (23:45)
== END 2017-10-27 14:38 | disposition home or self-care (01) | DRG 511 ==
LOC: PHEFT 17:45 → PHEDA 19:46 → UNDOADMOB 19:47 → OBSVTOIN 19:48 → N06A 23:24 → PHEDA 23:24 → UNDODISOB 10-27 14:38
PROVIDERS: ADMIT Hospitalist; ATTEND Hospitalist
PROC: 0PSH04Z Reposition Right Radius with Internal Fixation Device, Open Approach (ICD-10-PCS; principal; 2017-10-27 08:08)
DX: S52.571A Other intraarticular fracture of lower end of right radius, initial encounter for closed fracture (principal); E87.1 Hypo-osmolality and hyponatremia; I10 Essential (primary) hypertension; S60.811A Abrasion of right wrist, initial encounter; D72.829 Elevated white blood cell count, unspecified; F43.9 Reaction to severe stress, unspecified; R94.31 Abnormal electrocardiogram [ECG] [EKG]; Z79.899 Other long term (current) drug therapy; W01.0XXA Fall on same level from slipping, tripping and stumbling without subsequent striking against object, initial encounter; Y92.009 Unspecified place in unspecified non-institutional (private) residence as the place of occurrence of the external cause; T50.2X5A Adverse effect of carbonic-anhydrase inhibitors, benzothiadiazides and other diuretics, initial encounter; Z88.5 Allergy status to narcotic agent
CPT/HCPCS: 71010; 73100; 73110; 76000; 80048; 80053; 85025; 85610; 85730; 93005; 96374; 96375; G8987-GP; G8988-GP; J0131; J0690; J1100; J1580; J2270; J2370; J2405; J3370; J7030; J7050; J7120